=== PATIENT | male | born 1985 | race Caucasian/White ===

== ENCOUNTER 2017-07-12 23:44 | Emergency (ER) | payer OTHER ==
[~2017-07-12] VITALS: Ht 182.9 cm; Wt 59.1 kg
[2017-07-13 04:00] VITALS: BP 132/73
== END 2017-07-13 05:01 | disposition home or self-care (01) ==
LOC: EMS 23:46
DX: J30.9 Allergic rhinitis, unspecified (principal); F41.9 Anxiety disorder, unspecified; Z88.1 Allergy status to other antibiotic agents
CPT/HCPCS: 99281